=== PATIENT | female | born 1960 ===

== ENCOUNTER → 2018-04-21 19:43 | Outpatient (REF) | payer SELFPAY ==
[2018-04-21 19:53] LABS: Add Manual Diff / Slide Review NO; Basophils Percent Auto 0.5 % (0-2); Eosinophils Percent Auto 0.8 % (2-4); Hematocrit 43.4 % (36-46); Hemoglobin 14.6 g/dL (12.0-16.0); Lymphocytes Percent Auto 23.3 % (25-40); Mean Corpuscular HGB Conc 33.6 % (30-36); Mean Corpuscular Hemoglobin 31.7 PG (26-34); Mean Corpuscular Volume 94.2 fL (80-100); Monocytes Percent Auto 6.7 % (3-14); Neutrophils Absolute Auto 5500 /uL (3000-5900); Neutrophils Percent Auto 68.7 % (50-75); Platelet Count 161 X10^3/uL (150-400); Red Cell Distribution Width 13.6 % (11.6-14.8)
[2018-04-21 20:06] LABS: Alanine Aminotransferase 21 IU/L (9-52); Albumin 4.9 g/dL (3.5-5.0); Albumin Globulin Ratio 1.8 (1.0-2.8); Alkaline Phosphatase 59 U/L (38-126); Aspartate Aminotransferase 28 IU/L (14-36); BUN Creatinine Ratio 13.3 (6-22); Bilirubin Total 0.6 mg/dL (0.2-1.3); Blood Urea Nitrogen 8 mg/dL (7-17); Calcium 10.1 mg/dL (8.4-10.2); Carbon Dioxide 30 mmol/L (22-32); Chloride 96 mmol/L (98-107); Estimated Glomerular Filt Rate > 60.0 mL/min (>60); Globulin 2.8 g/dL (1.7-4.1); Glucose 119 mg/dL (70-100); HEMOLYSIS < 15 (0-50); Potassium 4.1 mmol/L (3.4-5.1); Sodium 142 mmol/L (137-145); Total Protein 7.7 g/dL (6.3-8.2)
[2018-04-21 21:03] LABS: Hemoglobin A1C% w Est Avg Glu 5.6 % (4.0-6.0)
== END ==
LOC: LAB 19:43
PROVIDERS: Visit Provider Nurse Practitioner Acute Care
DX: I10 Essential (primary) hypertension (principal); Z13.1 Encounter for screening for diabetes mellitus
CPT/HCPCS: 80053; 83036; 85025